=== PATIENT | female | born 1985 | race Caucasian/White ===

== ENCOUNTER 2021-05-03 10:56 | Emergency (ER) | payer BC, SELFPAY ==
--- NOTE | ~2021-05-03 | XR_ITS ---
EXAMINATION: XR foot LT min 3V DATE: 05/03/2021 11:23 INDICATION: Left foot injury. TECHNIQUE: 4 views of left foot were obtained. COMPARISON: None. FINDINGS: Bone alignment is normal. No fracture. There is mild osteoarthritis of first metatarsophala ngeal joint and some of the interphalangeal joints. There is an enthesophyte at posterior aspect of c alcaneal tuberosity. IMPRESSION: 1. Mild polyarticular osteoarthritis. Reviewed, dictated and finalized at location A.
[2021-05-03 11:08] VITALS: BP 127/70; PULSE 67; RESP 18; TEMP 36.6; O2SAT 98
[2021-05-03 11:09] VITALS: BP 127/70; PULSE 67; RESP 18; TEMP 36.6; O2SAT 98
--- NOTE | 2021-05-03 11:34 | ED.LOWEXIN ---
HPI - Extremity Injury (Lower) General Chief Complaint: Extremity Injury, Lower Stated Complaint: left ankle History of Present Illness HPI Narrative: This is a 36 year old female that comes in complaining of injury to left ankle that happened around 0900 this morning. Patient states a counter that they are putting together fell on her foot and ankle cut her ankle. Patient is worried that her foot may be fractured and her ankle is swollen with a laceration that she has placed a band aid on. Related Data Home Medications Medication Instructions Recorded Confirmed alprazolam 0.25 mg PO PRN PRN 05/03/21 05/03/21 escitalopram oxalate 20 mg PO DAILY 05/03/21 05/03/21 Allergies Allergy/AdvReac Type Severity Reaction Status Date / Time No Known Allergies Allergy Verified 05/03/21 11:08 Review of Systems Review of Systems: Narrative: CONSTITUTIONAL: Denies fever, chills, or sweats. EYES: Denies visual changes, redness, or discharge. ENT: Denies rhinorrhea, congestion, sore throat, or otalgia. CARDIOVASCULAR:Denies chest pain, palpitations, or edema. RESPIRATORY: Denies cough or dyspnea. GASTROINTESTINAL: Denies abdominal pain, nausea, vomiting, or diarrhea. GENITOURINARY: Denies dysuria or hematuria. SKIN:[Denies rash or itching. MUSCULOSKELETAL:Denies back pain, c/o left ankle and foot joint pain, or myalgia. NEUROLOGIC: Denies headache, numbness, or weakness. PSYCHIATRIC:Denies anxiety or depression [facility] Past Medical History Medical History (Updated 05/03/21 @ 11:47 by Hiral Loo NP) Fibroid, uterine Kidney stones induced hypertension Family History Family History Father Hypertension Family history of gout Sibling Hypertension Family history of diabetes mellitus in first degree relative Mother Hypertension Grandparent Hypertension Family history of heart disease in male family member before age 55 Social History Social History Smoking status: Never smoker Alcohol intake: never Gender identity (if verbalized by the patient): Female Comments At time as signature, I have reviewed and agree with nursing past medical, social, surgical and family history. Please see nursing chart for further information. There is no relevant family history pertinent to the presenting complaint. Exam Narrative: Exam Narrative: GENERAL:Well-appearing, well-nourished, and in no acute distress. HEAD:Normocephalic, atraumatic. EYES: PERRLA and EOMI. ENT: Nares clear, no rhinorrhea or epistaxis. Mucous membranes moist. NECK: Supple. CHEST: Clear to auscultation. No respiratory distress. HEART: Regular rate and rhythm. No murmur heard. Normal peripheral pulses. ABDOMEN: Soft, nontender, nondistended, normal active bowel sounds. EXTREMITIES: Normal range of motion. left foot swollen with bruising noted close to 4th and 5th toes with 3+ edema to ankle with a laceration of 2 cm . SKIN: Warm, dry, no rash. NEURO: No focal deficits. Alert and oriented x3. Course STEWARD/STEWARDESS/PA Physician Supervision xray negative for fracture. Vital Signs Vital signs: Vital Signs Temperature 97.8 F 05/03/21 11:08 Pulse Rate 67 05/03/21 11:08 Respiratory Rate 18 05/03/21 11:08 Blood Pressure 127/70 05/03/21 11:08 Pulse Oximetry 98 05/03/21 11:08 Temperature 97.8 F 05/03/21 11:09 Pulse Rate 67 05/03/21 11:09 Respiratory Rate 18 05/03/21 11:09 Blood Pressure 127/70 05/03/21 11:09 Pulse Oximetry 98 05/03/21 11:09 Procedures Laceration Laceration 1: Date: 05/03/21 Time: 11:35 Site: lower extremity Side (If applicable): left Size (cm): 2 Description: linear Depth: simple, single layer ====== Skin Level ====== Skin layer closed with: dermabond and steri strips ====== Subcutaneous Layer ====== ======
== END 2021-05-03 11:52 | disposition home or self-care (01) ==
PROVIDERS: Emergency Provider Nurse Practitioner Family; PCP Physician Assistant
DX: S93.402A Sprain of unspecified ligament of left ankle, initial encounter (principal); S96.912A Strain of unspecified muscle and tendon at ankle and foot level, left foot, initial encounter; S91.012A Laceration without foreign body, left ankle, initial encounter; W20.8XXA Other cause of strike by thrown, projected or falling object, initial encounter
CPT/HCPCS: 12001; 73630; 99213; G0463

== ENCOUNTER 2022-01-25 12:31 | Emergency (ER) | payer BC, SELFPAY ==
--- NOTE | 2022-01-25 12:36 | ED.URI ---
HPI - URI/Sore Throat General Chief Complaint: Upper Respiratory Infection Stated Complaint: dizziness,head congestion,bilateral ear discomfort Time Seen by Provider: 01/25/22 12:36 Source: patient Mode of arrival: ambulatory Limitations: no limitations History of Present Illness HPI Narrative: Ms. Hdz is a 36-year-old female patient presenting to the clinic today with complaints of dizziness, head congestion, and bilateral ear discomfort. She reports she has been having the ear discomfort and dizziness x1 week. Began having upper respiratory symptoms yesterday with low-grade temperature. Related Data Home Medications Medication Instructions Recorded Confirmed escitalopram oxalate 20 mg PO DAILY 05/03/21 05/03/21 Allergies Allergy/AdvReac Type Severity Reaction Status Date / Time No Known Allergies Allergy Verified 01/25/22 12:57 Review of Systems Review of Systems: Pertinent positives per HPI. Patient denies any rash, headache, visual changes, shortness of breath, chest pain, palpitations, nausea, vomiting, diarrhea, constipation, abdominal pain, or any urinary issues. [facility] Past Medical History Medical History (Updated 01/25/22 @ 13:23 by Scar Godinez APRN) Fibroid, uterine Kidney stones induced hypertension Family History Family History Father Hypertension Family history of gout Sibling Hypertension Family history of diabetes mellitus in first degree relative Mother Hypertension Grandparent Hypertension Family history of heart disease in male family member before age 55 Social History Social History Smoking status: Never smoker Alcohol intake: never Gender identity (if verbalized by the patient): Female Comments At the time of my signature, I reviewed and agree with the nursing past medical, surgical, social, and family history. There is no relevant family history pertinent to the patient complaint. Exam Narrative: General: Well-developed, obese, in no apparent distress Head: Normocephalic, atraumatic Eyes: Pupils equally round and reactive to light bilaterally, EOM intact, sclera and conjunctive clear, no discharge, lids normal Ears: Left TMs intact and clear, right TM, opaque with some fluid behind TM and mild bulge, ear canals clear, no drainage, grossly hearing normal. Nose: Nares patent, clear nasal discharge, mild inflammation, no sinus tenderness. Mouth: Oral pharynx without lesions or masses, good dentition, MMM. Postnasal drip Neck: Supple, trachea midline, no enlargement of anterior or posterior cervical nodes, no thyroid masses or goiter palpable. Cardio: Regular rate and rhythm, s1 and s2 normal, no murmur appreciated. Resp: Clear to auscultation bilaterally, no rhonchi, rales, wheezing or rubs Course Course Emergency Course: Portions of this record may have been created with voice recognition software. Level of Care: Express Care Visit Vital Signs Vital signs: Vital signs reviewed MDM - URI/Sore Throat MDM Narrative Medical decision making narrative: Upon assessment patient. She is resting comfortably on the exam table in the exam room. Developed cold symptoms yesterday with a very low-grade temp. Has been taking Motrin and Tylenol for this. Has had unsteadiness and ear discomfort the past week. Feels that her ears are full. She denies any falling or real changes in her gait otherwise. With assessment she has mild bulging to the right eustachian tube with some mild fluid/pressure noted behind the TM without redness or erythema. I suspect URI with eustachian tube dysfunction as her influenza testing is negative. She has no known exposure to anyone with Covid. 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 Does suffer from seasonal allergies Differential Diagnosis Differential diagnosis: Likely upper respiratory infection, croup
[2022-01-25 12:47] VITALS: BP 126/83; PULSE 106; RESP 18; TEMP 38; O2SAT 100
== END 2022-01-25 13:18 | disposition home or self-care (01) ==
PROVIDERS: Emergency Provider Nurse Practitioner Family; PCP Physician Assistant
DX: J06.9 Acute upper respiratory infection, unspecified (principal); H69.91 Unspecified Eustachian tube disorder, right ear; H65.01 Acute serous otitis media, right ear
CPT/HCPCS: 87804; 99213; G0463

== ENCOUNTER 2022-01-27 12:20 | Emergency (ER) | payer BC, SELFPAY ==
[2022-01-27 12:33] VITALS: BP 128/80; PULSE 71; RESP 18; TEMP 36.8; O2SAT 98
--- NOTE | 2022-01-27 12:48 | ED.URI ---
HPI - URI/Sore Throat General Chief Complaint: Upper Respiratory Infection Stated Complaint: bilateral ear pain Time Seen by Provider: 01/27/22 12:48 Source: patient and RN notes reviewed Mode of arrival: ambulatory Limitations: no limitations History of Present Illness HPI Narrative: 36-year-old female presented for complaint of left sore throat and worsening left ear pain over the last 2 days. She was seen in [facility] 2 days ago and diagnosed with eustachian tube dysfunction likely viral etiology. She states she is taken ibuprofen and Tylenol for symptoms. Pain is worse when she swallows. Also endorses productive cough in the morning. Denies nausea, vomiting, diarrhea, fever or chills Related Data Home Medications Medication Instructions Recorded Confirmed escitalopram oxalate 20 mg PO DAILY 05/03/21 01/27/22 Allergies Allergy/AdvReac Type Severity Reaction Status Date / Time No Known Allergies Allergy Verified 01/27/22 13:00 Review of Systems Review of Systems: CONSTITUTIONAL: Denies malaise, chills, sweats, fever EYES: Denies visual changes, redness, or discharge ENT: Reports rhinorrhea, congestion,Reports otalgia, sore throat CARDIOVASCULAR: Denies chest pain, palpitations, edema RESPIRATORY: Reports cough, post nasal drainage. Denies dyspnea GASTROINTESTINAL: Denies abdominal pain, nausea, vomiting, diarrhea SKIN: Denies rash or itching MUSCULOSKELETAL: denies myalgia NEUROLOGIC: Denies headache [facility] Past Medical History Medical History (Updated 01/27/22 @ 13:08 by Jennifer Banda APRN) Fibroid, uterine Kidney stones induced hypertension Family History Family History Father Hypertension Family history of gout Sibling Hypertension Family history of diabetes mellitus in first degree relative Mother Hypertension Grandparent Hypertension Family history of heart disease in male family member before age 55 Social History Social History Smoking status: Never smoker Alcohol intake: never Gender identity (if verbalized by the patient): Female Exam Narrative: GENERAL: Ill-appearing, nontoxic HEAD: Normocephalic EYES: PERRLA, conjunctivae clear ENT: Mucous membranes moist. Right TM pearly em with dull light reflex; Left TM erythematous, bulging with mild stenosis no tragal tenderness bilat. Oropharynx erythematous with left tonsillar exudate and swelling, no drooling, no hoarseness, no trismus, uvula midline. No tripod positioning, muffled voice, soft palate or pharyngeal wall bulging NECK: Supple. No lymphadenopathy CHEST: Clear to auscultation, breath sounds equal. No wheezing, rhonchi, rales, or stridor. HEART: Regular rate and rhythm. No murmur heard. SKIN: Warm, dry, no rash. NEURO: Alert and oriented x3. PSYCH: Normal mood and affect Course Course Emergency Course: Patient is aware of diagnosis, understands and agrees to treatment plan. Anticipatory guidance given. Patient agrees to follow-up as directed and is aware of reasons to seek care at the emergency department. Portions of this record may have been created with voice recognition software Level of Care: Express Care Visit Vital Signs Vital signs: Vital Signs Temperature 98.2 F 01/27/22 12:33 Pulse Rate 71 01/27/22 12:33 Respiratory Rate 18 01/27/22 12:33 Blood Pressure 128/80 01/27/22 12:33 Pulse Oximetry 98 01/27/22 12:33 Temperature 98.2 F 01/27/22 12:33 Pulse Rate 71 01/27/22 12:33 Respiratory Rate 18 01/27/22 12:33 Blood Pressure 128/80 01/27/22 12:33 Pulse Oximetry 98 01/27/22 12:33 reviewed MDM - URI/Sore Throat MDM Narrative Medical decision making narrative: On exam pt's left middle ear is erythematous and bulging, left tonsillar exudate. Strep neg but given pain and exam finding will send abx at this time. she is scheduled with her PCP
== END 2022-01-27 13:15 | disposition home or self-care (01) ==
PROVIDERS: Emergency Provider Nurse Practitioner Family; PCP Physician Assistant
DX: J02.9 Acute pharyngitis, unspecified (principal); H66.002 Acute suppurative otitis media without spontaneous rupture of ear drum, left ear
CPT/HCPCS: 87081; 87880; 99213; G0463

== ENCOUNTER 2022-06-01 10:10 | Emergency (ER) | payer BC, SELFPAY ==
--- NOTE | 2022-06-01 10:24 | WPDEDEXPGENP ---
HPI - General Ped General Chief complaint: Urogenital-Female Stated complaint: uti complaint History of Present Illness HPI narrative: Patient is a 37-year-old female who presents to the [facility] via POV for evaluation of urinary symptoms that have been present since approximately 3 AM. Additionally, she reports urinary frequency, urinary urgency, dysuria, and bilateral low back pain. No improvement after increasing water intake. History of UTIs. Last UTI was approximately 6 years ago. Denies taking meds for symptoms. Denies alleviating and aggravating factors. Related Data Home Medications Medication Instructions Recorded Confirmed escitalopram oxalate 20 mg tablet 20 mg PO DAILY 05/03/21 06/01/22 Allergies Allergy/AdvReac Type Severity Reaction Status Date / Time No Known Allergies Allergy Verified 06/01/22 10:32 Pediatric Review of Systems Review of Systems: Denies history of urinary tract infections, pyelonephritis, and renal calculi. Pertinent negatives: fever, chills, sweats, change in appetite, poor p.o. intake, malaise, recent weight loss, myalgias, lymphadenopathy, headache, dizziness, STD exposure, painful intercourse, abdominal pain, constipation, nausea, vomiting, diarrhea, abdominal cramping, hematuria, urinary incontinence, vaginal bleeding/discharge, penile drainage, testicular pain, shortness of breath, chest pain, and heart palpitations/murmurs. [facility] Past Medical History Medical History (Updated 06/01/22 @ 11:07 by Marvin Brown, [facility]) Fibroid, uterine Kidney stones induced hypertension Family History Family History Father Hypertension Family history of gout Sibling Hypertension Family history of diabetes mellitus in first degree relative Mother Hypertension Grandparent Hypertension Family history of heart disease in male family member before age 55 Social History Social History Smoking status: Never smoker Alcohol intake: never Gender identity (if verbalized by the patient): Female Pediatric Exam Narrative: Physical exam: GENERAL: Well-appearing, well-nourished, and in no acute distress. HEAD: Normocephalic, atraumatic. NECK: Supple. No lymphadenopathy or nuchal rigidity. CHEST: Lung sounds are clear to auscultation in bilateral lung lanza. No respiratory distress. HEART: Regular rate and rhythm. No murmur, gallop, or rub heard. ABDOMEN: Soft, non-tender, non-distended, normal active bowel sounds in all quadrants. No guarding. No rebound tenderness. No pulsatile or palpable abdominal mass(es). No CVATGU: Bladder non-distended, non-tender EXTREMITIES: Normal range of motion. No edema. SKIN: Warm, dry, no rash. No skin color changes. Excellent turgor. NEURO: No focal deficits. Alert and oriented x3. SPECIAL OBSERVATIONS: Smiling. Laughing. No evidence of discomfort. Tolerates food/fluids. Course Course Level of Care: Express Care Visit Vital Signs Vital signs: Vital Signs Temperature 97.9 F 06/01/22 10:25 Pulse Rate 76 06/01/22 10:25 Respiratory Rate 18 06/01/22 10:25 Blood Pressure 127/82 06/01/22 10:25 Pulse Oximetry 98 06/01/22 10:25 Oxygen Delivery Room Air 06/01/22 10:25 Temperature 97.9 F 06/01/22 10:25 Pulse Rate 76 06/01/22 10:25 Respiratory Rate 18 06/01/22 10:25 Blood Pressure 127/82 06/01/22 10:25 Pulse Oximetry 98 06/01/22 10:25 Oxygen Delivery Room Air 06/01/22 10:25 Medical Decision Making Differential Diagnosis Differential Diagnosis: Nephrolithiasis, urinary tract infection, pyelonephritis, frequency of micturition, dysuria Vital Signs Vital Signs: Vital Signs Temperature 97.9 F 06/01/22 10:25 Pulse Rate 76 06/01/22 10:25 Respiratory Rate 18 06/01/22 10:25 Blood Pressure 127/82 06/01/22 10:25 Pulse Oximetry 98 06/01/22 10:25
[2022-06-01 10:25] VITALS: BP 127/82; PULSE 76; RESP 18; TEMP 36.6; O2SAT 98
== END 2022-06-01 11:11 | disposition home or self-care (01) ==
PROVIDERS: Emergency Provider Nurse Practitioner Family; PCP Physician Assistant
DX: N39.0 Urinary tract infection, site not specified (principal)
CPT/HCPCS: 81003; 99213; G0463

== ENCOUNTER 2023-06-26 08:55 | Emergency (ER) | payer BC, SELFPAY ==
[2023-06-26 09:02] VITALS: BP 139/82; PULSE 100; RESP 18; TEMP 36.8; O2SAT 100
--- NOTE | 2023-06-26 09:07 | ED.URI ---
HPI - URI/Sore Throat General Chief Complaint: Upper Respiratory Infection Stated Complaint: Sore Throat,Cough,Body Aches Time Seen by Provider: 06/26/23 09:07 Source: patient, RN notes reviewed and old records reviewed Mode of arrival: ambulatory Limitations: no limitations History of Present Illness HPI Narrative: 38-year-old female presents to the [facility] with complaints of sneezing, sore throat, cough and body aches that started 15 hours prior to arrival. Has taken Benadryl, no other treatment prior to arrival. Denies fevers. 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 Denies fevers. Chest pain pain. Onset (ago): hour(s) (15) Treatments prior to arrival: other (Benadryl) Related Data Home Medications Medication Instructions Recorded Confirmed bupropion HCl 300 mg 24 hr tablet, 300 mg PO QAM 03/28/23 06/26/23 extended release escitalopram oxalate 20 mg tablet 10 mg PO DAILY 03/28/23 06/26/23 Allergies Allergy/AdvReac Type Severity Reaction Status Date / Time No Known Allergies Allergy Verified 06/26/23 09:17 Review of Systems Review of Systems: All systems reviewed & are unremarkable except as noted in HPI and below Constitutional: Constitutional: Reports as per HPI and Reports body ache(s) Eyes: Eyes: Reports no additional eye complaints ENT: Reports as per HPI Cardiovascular: Cardiovascular: Reports no additional cardiovascular complaints, Denies chest pain and Denies dyspnea Respiratory: Respiratory: Reports as per HPI, Denies chest congestion, Reports cough and Denies dyspnea Gastrointestinal: Gastrointestinal: Reports no additional gastrointestinal complaints, Denies abdominal pain, Denies nausea and Denies vomiting Musculoskeletal: Musculoskeletal: Reports no additional musculoskeletal complaints Integumentary/Breasts: Skin/Breast: Reports system reviewed and no additional complaints, except as docu Neurologic: Reports system reviewed and no additional complaints, except as documented Psychiatric: Psychiatric: Reports no additional psychiatric complaints Allergic/Immunologic: Allergic/Immunologic: Reports no additional allergic/immunologic complaints PMFSH Past Medical History Medical History Fibroid, uterine History of multiple gestation x1 History of vaginal delivery x4 Kidney stones induced hypertension Surgical History Surgical History Stuart teeth removed Family History Family History Father Hypertension Family history of gout Diabetes mellitus Sibling Hypertension Family history of diabetes mellitus in first degree relative Diabetes mellitus Mother Hypertension Grandparent Hypertension Family history of heart disease in male family member before age 55 Heart disease Paternal grandmother Ovarian cancer Maternal Grandmother Social History Social History Smoking status: Never smoker Alcohol intake: current Substance use: never Lack of Transportation: No Lack of Food: Never True Current Housing: I Have Housing Concerned About Future Housing: No Difficulty Paying Gas/Electric Bills: No Difficulty Paying for Meds: No Currently Unemployed: No Education: Bachelor's Degree Living arrangements: with family Occupation/Education: occupation Gender identity (if verbalized by the patient): Female Sexual Orientation (if Verbalized by the Patient): Straight or Heterosexual Spiritual care concerns: No Agree to blood products: Yes Comments At the time of my signature, I reviewed and agree with the nursing past medical, surgical, social, and family history. There is no relevant family history pertinent to the patient complaint. Exam Const: General: cooperative, comfortable, n
== END 2023-06-26 09:35 | disposition home or self-care (01) ==
PROVIDERS: Emergency Provider Nurse Practitioner; PCP Physician Assistant
DX: U07.1 COVID-19 (principal); F41.9 Anxiety disorder, unspecified; F32.A Depression, unspecified
CPT/HCPCS: 87081; 87426; 87880; 99213; C9803; G0463

== ENCOUNTER → 2023-08-25 12:41 | Outpatient (CLI) | payer BC, SELFPAY ==
--- NOTE | ~2023-08-25 | XR_ITS ---
XR chest 2V DATE: 08/25/2023 13:00 INDICATION: Productive cough for 6 weeks post Covid TECHNIQUE: 2 views COMPARISON: 11/04/2010 2 view chest FINDINGS: Heart size is within normal limits. No hilar or mediastinal enlargement. No pulmonary infil trate or consolidation, pleural effusion or pulmonary vascular congestion or pneumothorax is detected . IMPRESSION: No active cardiopulmonary disease Reviewed, dictated and finalized at location B.
== END ==
PROVIDERS: PCP Physician Assistant; Visit Provider Physician Assistant
DX: R05.9 Cough, unspecified (principal)
CPT/HCPCS: 71046